=== PATIENT | female | born 1965 | race Caucasian/White ===

== ENCOUNTER 2019-03-08 05:45 | Observation (INO) ==
--- NOTE | 2019-02-22 16:33 | PAT Medication Instructions ---
Medication Instructions Date of Service February 22, 2019 Home Medications bisoprolol fumarate 5 mg tablet 0.25 mg PO QAM ferrous sulfate 325 mg (65 mg iron) tablet 65 mg PO BID levothyroxine 50 mcg tablet 50 mcg PO QAM norethindrone acetate 10 mg PO QAM ASK your prescriber and surgeon norethindrone acetate 10 mg PO QAM DO NOT take the morning of surgery ferrous sulfate 325 mg (65 mg iron) tablet 65 mg PO BID Take morning of surgery With a small sip of water, OTHERWISE NOTHING TO EAT OR DRINK AFTER MIDNIGHT: bisoprolol fumarate 5 mg tablet 0.25 mg PO QAM levothyroxine 50 mcg tablet 50 mcg PO QAM Take evening before surgery ferrous sulfate 325 mg (65 mg iron) tablet 65 mg PO BID Other Notes If you have any questions please call us at [phone] or [phone] or [phone] or [phone]
--- NOTE | 2019-02-23 13:14 | Anesthesiology Consultation ---
Date of Service February 23, 2019 Assessment & Plan (1) Encounter for pre-operative examination: - Check test AM DOS - Cardiology: 03/05/18: Palpitations related to PAC's/PVC's- "stable." Continued on same regimen. Chart Review Chart Review: Pending: Refer to Additional Notes / Consult section (pending preop labs) and Patient seen in Pre Admission Testing Teaching & Discussion Pre-Anesthesia Teaching/Discussion Notes: Instructed NPO after midnight before surgery,except medications with 15 cc of water. Medication instructions provided according to the PAT guidelines. History Surgery Operation Date: 03/08/19 07:30 Proposed Procedures p Robotic Total Laparoscopic Hysterectomy with Possible Excite Procedure - Irene Xavier MD, FACOG Height/Weight Height: 5 ft 9.5 in Weight: 105.5 kg Allergies Allergy/AdvReac Type Severity Reaction Status Date / Time ibuprofen AdvReac advised to Verified 02/23/19 13:43 avoid while taking bisoprolol naproxen AdvReac advised to Verified 02/23/19 13:43 avoid while taking bisoprolol most sanitary pads Allergy Unknown itching,kodi Uncoded 02/16/19 13:18 h Medications Home Medications Medication Instructions Recorded Confirmed Last Taken bisoprolol fumarate 5 mg tablet 0.25 mg PO QAM tab 01/07/19 02/23/19 Unknown ferrous sulfate 325 mg (65 mg 65 mg PO BID tab 01/07/19 02/23/19 Unknown iron) tablet levothyroxine 50 mcg tablet 50 mcg PO QAM tab 01/07/19 02/23/19 Unknown norethindrone acetate 10 mg PO QAM 02/16/19 02/23/19 Unknown Past Medical History Medical History Dysfunctional uterine bleeding Anemia in setting of dysfunction uterine bleeding (reason for upcoming procedure); most recent available hgb 8.5 11/2018*- no known hx blood transfusions Arrhythmia palpitations related to PAC's/PVC's per cardiology- on bisoprolol Endometriosis Hx of cervical cancer Hypertension Hypothyroidism Migraine menstrual related Obesity Exercise / Class Metabolic Activity III < 4 Walking/Shop/Light housework Past Family History Family History Mother Alzheimer disease Brother Kidney disease Father Lung cancer Past Surgical History Surgical History H/O umbilical hernia repair History of wisdom tooth extraction Hx of cone biopsy of cervix Past Anesthesia History No Hx of Anesthesia Complications and No Family Hx of Anesthesia Complications History of PONV No Hx of PONV and No Hx of Motion Sickness Social History Smoking Status: Former smoker Do You Dip or Chew Tobacco: No Smoking End Date: Quit 21 years ago Hx Alcohol Use: No Hx Substance Use: No Review of Systems + occasional palpitations. Rare diet related reflux. Patient denies chest pain, shortness of breath, cough, wheezing. Physical Exam Vital Signs VITALS BP 121/77 P 80 TEMP 98.6 SP02 99%RA RESP 16 PHYSICAL Mildly decreased cervical extension. Full TMJ range of motion. TMD 4 finger breaths Mallampati Score 2 Dentition: chipped side per patient, lower right side permanent bridge Lungs: clear throughout to auscultation Cardiac: regular rate and rhythm, no murmurs noted Spine: normal Carotid arteries: negative bruit Extremities: no edema Testing Electrocardiogram Date: 03/17/18 SR at 80bpm. Low QRS voltage in precordial leads. "ECG without significant abnormalities" Stress Test Date: 08/17/13 Type: exercise Stress EKG negative for myocardial ischemia at 89% MPHR. Moderate level of exercise achieved. 7.0 METS. No chest pain.
[2019-02-23 16:03] LABS: Basophils # (auto) 0.02 K/uL (0-0.2); Basophils % (auto) 0.5 %; Eosinophils # (auto) 0.06 K/uL (0-0.5); Eosinophils % (auto) 1.6 %; Hematocrit (blood only) 37.6 % (37-47); Hemoglobin 11.6 g/dL (12.0-16.0); Immature Granulocytes # (auto) 0.01 K/uL (0.00-0.02); Immature Granulocytes % (auto) 0.3 %; Lymphocytes # (auto) 1.53 K/uL (1.2-3.4); Lymphocytes % (auto) 39.5 %; Mean Corpuscular Hemoglobin 28.9 pg (25-34); Mean Corpuscular Hgb Conc 30.9 g/dL (32-36); Mean Corpuscular Volume 93.8 fL (80-100); Mean Platelet Volume 11.3 fL (7.4-10.4); Monocytes # (auto) 0.27 K/uL (0.11-0.59); Neutrophils # (auto) 1.98 K/uL (1.4-6.5); Neutrophils % (auto) 51.1 %; Platelet Count 343 K/uL (130-400); RDW Coefficient of Variation 13.5 % (11.5-14.5); RDW Standard Deviation 46.5 fL (36.4-46.3); Red Blood Count 4.01 M/uL (4.2-5.4); White Blood Count 3.87 K/uL (4.8-10.8)
[~2019-03-08 05:45] MED LIST: LACTATED RINGER'S 1,000 ML IV SCH
[2019-03-08] MEDS ORDERED: CEFAZOLIN 3000MG 65 ML IV SCH (06:00)
[2019-03-08] MEDS ORDERED: LR 15ML/HR IV SCH (06:00)
[2019-03-08] MEDS ORDERED: LACTATED RINGER'S 1,000 ML IV SCH ×2 (06:00→10:15)
[2019-03-08 06:32] LABS: Basophils # (auto) 0.02 K/uL (0-0.2); Basophils % (auto) 0.4 %; Eosinophils # (auto) 0.08 K/uL (0-0.5); Eosinophils % (auto) 1.6 %; Hematocrit (blood only) 35.4 % (37-47); Hemoglobin 11.4 g/dL (12.0-16.0); Immature Granulocytes # (auto) 0.01 K/uL (0.00-0.02); Immature Granulocytes % (auto) 0.2 %; Lymphocytes # (auto) 1.42 K/uL (1.2-3.4); Lymphocytes % (auto) 27.5 %; Mean Corpuscular Hemoglobin 30.1 pg (25-34); Mean Corpuscular Volume 93.4 fL (80-100); Mean Platelet Volume 9.6 fL (7.4-10.4); Monocytes # (auto) 0.29 K/uL (0.11-0.59); Monocytes % (auto) 5.6 %; Neutrophils # (auto) 3.34 K/uL (1.4-6.5); Neutrophils % (auto) 64.7 %; Platelet Count 368 K/uL (130-400); RDW Coefficient of Variation 14.5 % (11.5-14.5); RDW Standard Deviation 48.8 fL (36.4-46.3); Red Blood Count 3.79 M/uL (4.2-5.4); White Blood Count 5.16 K/uL (4.8-10.8)
[2019-03-08 06:38] LABS: Mean Corpuscular Hgb Conc 32.2 g/dL (32-36)
[2019-03-08] MEDS ORDERED: METHYLENE BLUE 0.5% 10 ML VIAL ONE (06:55)
[2019-03-08] MEDS ORDERED: BUPIVACAINE 0.5 % 5 MG/1 ML MPF 30ML VIAL ONE (06:55)
[2019-03-08] MEDS ORDERED: LIDOCAINE HCL 2% 2 ML VIAL/AMP(20MG/ML) INFIL ONE (06:57)
[2019-03-08] MEDS ORDERED: NEOSTIGMINE METHYLSULFATE 5 MG/5 ML SYR ONE (06:57)
[2019-03-08] MEDS ORDERED: DEXAMETHASONE SOD INJ 4 MG/ML VIAL ONE (06:57)
[2019-03-08] MEDS ORDERED: PROPOFOL IV EMULSION 10 MG/ML 20 ML VIAL IV ONE (06:57)
[2019-03-08] MEDS ORDERED: ONDANSETRON INJ 2 MG/ML 2 ML VIAL ONE (06:57)
[2019-03-08] MEDS ORDERED: GLYCOPYRROLATE 0.2 MG/ML VIAL ONE (06:57)
[2019-03-08] MEDS ORDERED: fentaNYL citrate 100 MCG/2 ML VIAL ONE (06:57)
[2019-03-08] MEDS ORDERED: MIDAZOLAM HCL 1 MG/ML 2ML VIAL ONE (06:57)
[2019-03-08] MEDS ORDERED: ATROPINE SULFATE 0.1 MG/ML 10ML SYR IV PRN (07:06)
[2019-03-08] MEDS ORDERED: ONDANSETRON INJ 2 MG/ML 2 ML VIAL IV PRN ×2 (07:06→10:06)
[2019-03-08] MEDS ORDERED: ePHEDrine sulfate 50 MG/ML AMP IV PRN (07:06)
[2019-03-08] MEDS ORDERED: HYDROmorphone INJ 2 MG/ML SYR/VIAL IV PRN (07:06)
[2019-03-08] MEDS ORDERED: PROMETHAZINE HCL 6.25 MG in SODIUM CHLORIDE 0.9% 50 ML IV PRN (07:06)
[2019-03-08] MEDS ORDERED: ACETAMINOPHEN 1000 MG/100 ML IV IV ONE (07:08)
--- NOTE | 2019-03-08 07:17 | History & Physical Bridge Note ---
Date of Service March 08, 2019 History & Physical Bridge Note I have examined the patient, reviewed the History & Physical and in the interval since the performance of the History & Physical I have noted the following changes of clinical significance: no changes noted
[2019-03-08] MEDS ORDERED: ROCURONIUM BROMIDE 10 MG/ML 5 ML VIAL ONE ×6 (08:13→09:09)
[2019-03-08] MEDS ORDERED: OXYCODONE/ACETAMINOPHEN 5mg/325mg TAB PO PRN ×2 (10:06)
[2019-03-08] MEDS ORDERED: PROMETHAZINE HCL 25 MG in SODIUM CHLORIDE 0.9% 50 ML IV PRN (10:06)
[2019-03-08] MEDS ORDERED: MEPERIDINE HCL 50 MG/ML CARP IV PRN (10:06)
[2019-03-08] MEDS ORDERED: ACETAMINOPHEN 325 MG TAB PO PRN (10:06)
[2019-03-08] MEDS ORDERED: MEPERIDINE HCL 25 MG/ML CARP IV PRN (10:06)
[2019-03-08] MEDS ORDERED: PROMETHAZINE HCL 12.5 MG in SODIUM CHLORIDE 0.9% 50 ML IV PRN (10:06)
--- NOTE | 2019-03-08 10:06 | Post Operative Brief Note ---
PG Immediate Post Op with CF Date of Surgery March 08, 2019 Pre & Post Diagnosis Operation Date: 03/08/19 07:30 Pre-Op Diagnosis: Uterine Fibroid, Dysfunctional Uterine Bleeding Post-Op Diagnosis: Uterine Fibroid, Dysfunctional Uterine Bleeding I identified the patient and participated in the time-out.: Yes Procedure Operation Date: 03/08/19 07:30 Actual Procedures p Robotic-assisted Laparoscopic total Hysterectomy, with Excite Procedure, bilateral salpingectomy, cystoscopy - Irene Xavier MD, FACOG Surgeon Irene Xavier MD, FACOG Nursing Educator Dr. Bernardo Estimated Blood Loss 50 Findings Consistent with Post-Op Diagnosis Specimens Specimen Description: Permanent specimen A: surgically resected uterus, cervix, bilateral fallopian tubes Drains Shaw Catheter (18fr shaw catheter placed at beginning of procedure by surgeon, shaw demonstrates clear yellow urine. Output measured and recorded by anesthesia. Catheter replaced with new 18fr shaw intraoperatively after cysto portion of procedure.)
[2019-03-08] MEDS: fentaNYL citrate 100 MCG/2 ML VIAL IV PRN ×2 (10:29→10:38)
--- NOTE | 2019-03-08 11:16 | Anesthesiology Progress Note ---
Date of Service March 08, 2019 Anesthesia Post Procedure Vital Signs Vital Signs: Temp Pulse Pulse Resp BP Pulse Ox 03/08/19 11:05 63 14 136/74 98 03/08/19 10:55 36.4 C L 64 20 134/72 97 03/08/19 10:45 67 14 134/74 96 03/08/19 10:35 62 19 135/73 97 03/08/19 10:25 66 16 147/76 H 99 03/08/19 10:18 37.0 C 72 14 150/80 H 98 03/08/19 06:12 36.9 C 75 18 157/81 H 97 Pain Intensity Abdomen: Pain Intensity: 3 Transfer of Care Handoff Completed per policy Notes Mental Status: alert / awake / arousable Patient Amnestic to Procedure: Yes Nausea / Vomiting: adequately controlled Pain: adequately controlled Airway Patency, RR, SpO2: stable & adequate BP & HR: stable & adequate Hydration State: stable & adequate Anesthetic Complications: no major complications apparent
--- NOTE | 2019-03-08 15:26 | Operative Report ---
DATE OF OPERATION: 03/08/2019 PREOPERATIVE DIAGNOSES: 1. Uterine fibroids. 2. Dysfunctional uterine bleeding. POSTOPERATIVE DIAGNOSES: 1. Uterine fibroids. 2. Dysfunctional uterine bleeding. PROCEDURES: 1. Robotic-assisted laparoscopic total hysterectomy with ExCITE procedure for removal of uterine specimen. 2. Bilateral salpingectomy. 3. Cystoscopy. SURGEON: Irene Xavier MD. MANAGER HOSPITALITY: Yue Bernardo MD ANESTHESIA: General per endotracheal tube. ESTIMATED BLOOD LOSS: 50 mL. FLUIDS: 1500 mL. URINE OUTPUT: 300 mL of clear yellow urine drained from the bladder at the end of the procedure. INDICATIONS: The patient is a 53-year-old white female who has a known fibroid uterus but over the past year has had increasing dysfunctional uterine bleeding and growth in her fibroid uterus. Endometrial biopsy was benign. She desires definitive surgical therapy. FINDINGS: A 14-week size uterus, irregular, consistent with fibroids, mobile. Tubes and ovaries normal bilaterally. Liver edge and upper diaphragm normal. COMPLICATIONS: None. DRAINS: Waggoner. DISPOSITION: To recovery room in stable condition. DESCRIPTION OF PROCEDURE: The patient was taken to the operating room where she was identified verbally and by bracelet. She was placed in dorsal supine position where general anesthesia was induced without difficulty. She was then placed in dorsal lithotomy position in [facility]. Her arms were carefully tucked and draped at her side. Her chest was protected. The Consumer Lending Manager was placed. She was prepped and draped in normal sterile fashion. Timeout was held, identifying correct patient, procedure, positioning, equipment and preoperative antibiotic. Attention was turned to the vagina where a weighted speculum was placed in the posterior vagina. The anterior lip of the cervix was grasped with single tooth tenaculum. Uterus sounded to 10+ cm, dilated to #23 Hegar dilator. The VCare uterine manipulator was placed into the uterus using a suture at the 3 o'clock area on the cervix. Waggoner catheter was placed and gloves were then changed. Attention was then turned to the abdomen where a supraumbilical incision 2 fingerbreadths above the umbilicus was made. This was stretched with a snap. Veress needle was placed through this, opening pressure 2 mmHg. Abdomen was insufflated with 3 liters of carbon dioxide gas. A 12 mm optical trocar was then placed through this until intra-abdominal placement was confirmed visually. The patient was placed into steep Trendelenburg position. Two 8 mm trocars were placed in right and left lower quadrant under direct visualization and a 10 mm left upper quadrant accessory trocar was then placed under direct visualization. Evaluation of the pelvis as noted above. All the uterus was free and mobile. The da Cesilia instructional support assistant device was connected to the patient and the slurry plant operator turned to the console. Then, first on the right and then on the left, the tubes were excised using hot holley. The round ligament was then entered using cautery and hot holley and the tubo-ovarian ligament was cauterized with hot holley. The uterine artery was skeletonized. The bladder flap was created anteriorly sharply with the scissors and the uterine artery was coagulated on the right side. Attention was then turned to the left side where the tube was removed from the ovary, the round ligament was cauterized with bipolar cautery and entered with hot holley, the tubo-ovarian ligament was cauterized and cut. The bladder flap was created anteriorly using sharp scissors. The uterine arteries were then cauterized and cut with hot holley on this side. Then we turned to the right side where this was cut with hot holley as well. The bladder was gently removed below the level of the cup on the cervix. A colpotomy incision was made in 365 degrees using hot holley until the specimen was . The specimen was placed in the right upper quadrant. The vagina was then closed with 2-0 V-Loc suture and hemostasis was noted to be excellent. Attention was then turned to cystoscopy where with a 70 degree scope, the bladder was entered. There were no stitches within the dome of the bladder. Methylene blue urine was seen to be effluxing from both ureteral orifices. Cystoscopy was discontinued. Her first catheter had been removed with approximately 300 mL of clear yellow urine in it and a new Waggoner was placed. Attention was then returned to the abdomen where the da Cesilia instructional support assistant device was undocked from the patient. A 15 mm trocar was placed through the supraumbilical incision and the bag was placed through this. The uterine specimen was then placed through the bag. The bag was pulled up through this supraumbilical incision. The supraumbilical incision was opened slightly further using the knife and then scissors on the fascia. An extra small Estrada O-ring self-retaining retractor was placed into the bag and was opened. Then using a sharp knife with the specimen fully contained within the specimen bag, the uterine specimen was broken up into several pieces until it was entirely removed from the bag. The bag and the Estrada O-ring were then removed. The abdomen was reinsufflated. The cuff was noted to be hemostatic. The trocars were removed. The fascia was reapproximated with 0 Vicryl in the supraumbilical incision. All skin incisions were then closed with 4-0 Vicryl in subcuticular fashion and infiltrated with 0.5% Marcaine. The incisions were then treated with Dermabond. All sponge, lap and needle counts were correct x2. The patient tolerated the procedure well and was taken to the recovery room in stable condition. I attest to the content of the Intraoperative Record and any orders documented therein. Any exception s are noted below.
--- NOTE | 2019-03-09 10:13 | Discharge Summary ---
ADMIT DIAGNOSES: Fibroid uterus and dysfunctional uterine bleeding. DISCHARGE DIAGNOSES: Fibroid uterus and dysfunctional uterine bleeding. PROCEDURES: Total laparoscopic hysterectomy and bilateral salpingectomy with cystoscopy. HISTORY OF PRESENT ILLNESS: The patient is a 53-year-old white female with long history of dysfunctional uterine bleeding with a negative endometrial biopsy in 12/04/2018 and a growing fibroid uterus with 600 plus mL uterus who presents for TLH, bilateral salpingectomy and cystoscopy. The patient would like ovaries maintained and less diseased. Her subserosal intramural fibroid that was 34 mL in 2018 is now 165 mL measuring 7 cm. She declines a villous interventional methods of control and declines Lupron to shrink fibroids. For the rest of patient's detailed history, please see her history and physical. ASSESSMENT: This is a 53-year-old white female with dysfunctional uterine bleeding and fibroids who presents for hysterectomy. HOSPITAL COURSE: The patient underwent a total laparoscopic hysterectomy and bilateral salpingectomy and cystoscopy without difficulty. Estimated blood loss was 50 mL. Her postoperative course was uncomplicated. She tolerated a regular diet, ambulated without difficulty, voided without difficulty after the removal of her Waggoner catheter, tolerated some regular diet and oral pain medications. She was discharged home in the evening of surgery with close followup.
== END 2019-03-08 17:15 | disposition home or self-care (01) ==
LOC: ASU 05:45 → 4N 05:45